=== PATIENT | male | born 1950 | race Hispanic/Latino ===

== ENCOUNTER 2017-03-30 13:56 | Emergency (ER) | payer OTHER ==
[2017-03-30] MEDS ORDERED: NA BORATE/BORIC AC/H2O/NACL 120 ML OPHTH IRRIG SOLN ONE (14:19)
[2017-03-30] MEDS ORDERED: TETRACAINE HCL 0.5% 4 ML OPHTH SOLN ONE (14:19)
[2017-03-30] MEDS ORDERED: FLUORESCEIN SODIUM 0.6 MG STRIP ONE (14:19)
== END 2017-03-30 15:16 | disposition home or self-care (01) ==
LOC: EDH 13:56
DX: S05.02XA Injury of conjunctiva and corneal abrasion without foreign body, left eye, initial encounter (principal); I10 Essential (primary) hypertension; E78.5 Hyperlipidemia, unspecified; X58.XXXA Exposure to other specified factors, initial encounter; Y93.89 Activity, other specified; Y92.89 Other specified places as the place of occurrence of the external cause; Y99.8 Other external cause status

== ENCOUNTER 2020-06-02 12:11 | Emergency (ER) | payer MEDICARE, OTHER ==
[2020-06-02] MEDS ORDERED: MORPHINE 4 MG SYG (4MG/1ML) ONE (13:03)
[2020-06-02] MEDS ORDERED: ONDANSETRON HCL 4 MG/2 ML VIAL ONE (13:03)
[2020-06-02 13:04] LABS: BASOPHILS % (AUTO) 0.6 % (0.0-5.0); EOSINOPHILS % (AUTO) 1.2 % (0.0-8.0); HEMATOCRIT 49.6 % (42-54); LYMPHOCYTES % (AUTO) 27.8 % (21.0-51.0); MEAN CORPUSCULAR HGB CONC 34.1 g/dL (32.0-36.0); MEAN CORPUSCULAR VOLUME 88.1 fL (79-99); MONOCYTES % (AUTO) 8.6 % (3.0-13.0); NEUTROPHILS % (AUTO) 61.5 % (40.0-77.0); PLATELET COUNT (AUTO) 201 K/uL (130-400); RED BLOOD CELL COUNT(AUTO) 5.63 MIL/uL (4.50-6.20); RED CELL DISTRIBUTION WIDTH 12.5 % (11.0-15.5); WHITE BLOOD COUNT (AUTO) 6.6 K/uL (4.8-10.8)
[2020-06-02 13:08] LABS: APPEARANCE,URINE Clear (CLEAR); BILIRUBIN,URINE Negative (NEGATIVE); COLOR,URINE Yellow (YELLOW); GLUCOSE, URINE (UA) Negative (NEGATIVE); KETONES,URINE Trace mg/dL (NEGATIVE); LEUKOCYTE ESTERASE ,URINE Trace (NEGATIVE); NITRATE,URINE Negative (NEGATIVE); OCCULT BLOOD,URINE Negative (NEGATIVE); PH,URINE 5.5 (5.0-8.0); PROTEIN,URINE Trace mg/dL (NEGATIVE)
[2020-06-02 13:13] LABS: BACTERIA,URINE Rare /HPF (None Seen); MUCUS,URINE Few LPF (None Seen); RBC,URINE 0-1 /HPF (0-1); SQUAMOUS EPITHELIAL CELL,UR Rare /HPF (0-2); WBC,URINE 0-1 /HPF (0-1)
[2020-06-02 13:27] LABS: INR 1.04 (0.85-1.15); PARTIAL THROMBOPLASTIN TIME 25.6 SEC (26.3-35.5); PROTHROMBIN TIME 10.8 SEC (9.6-11.6)
[2020-06-02 13:41] LABS: ALBUMIN 3.7 g/dL (3.5-5.0); BILIRUBIN,TOTAL 0.8 mg/dL (0.2-1.0); CREATININE 1.2 mg/dL (0.5-1.5); POTASSIUM 3.5 mmol/L (3.5-5.1); TOTAL PROTEIN, SERUM 7.5 g/dL (6.0-8.3)
[2020-06-02] MEDS ORDERED: IOHEXOL 350 MG/ML 100ML INFUS..BTL IV ONE (14:16)
== END 2020-06-02 15:57 | disposition home or self-care (01) ==
LOC: EDH 12:11
DX: K59.00 Constipation, unspecified (principal); I10 Essential (primary) hypertension; E78.5 Hyperlipidemia, unspecified; Z72.0 Tobacco use
CPT/HCPCS: 36415; 74177; 80053; 81001; 82550; 83605; 83690; 84484; 85025; 85610; 85730; 87040 ×2; 93005; 96361; 96374; 96375; 99285; J2270; J2405; Q9967

== ENCOUNTER 2021-09-05 10:37 | Emergency (ER) | payer MEDICARE, OTHER ==
[~2021-09-05] VITALS: Ht 177.8 cm; Wt 96.2 kg
[2021-09-05 11:25] LABS: CREATININE 1.2 mg/dL (0.5-1.5); POTASSIUM 3.8 mmol/L (3.5-5.1)
[2021-09-05 11:27] LABS: APPEARANCE,URINE CLEAR (CLEAR); BILIRUBIN,URINE NEGATIVE (NEGATIVE); COLOR,URINE YELLOW (YELLOW); GLUCOSE, URINE (UA) NEGATIVE (NEGATIVE); KETONES,URINE 5 mg/dL (NEGATIVE); LEUKOCYTE ESTERASE ,URINE NEGATIVE (NEGATIVE); NITRATE,URINE NEGATIVE (NEGATIVE); OCCULT BLOOD,URINE NEGATIVE (NEGATIVE); PH,URINE 5.5 (5.0-8.0); PROTEIN,URINE NEGATIVE (NEGATIVE); UROBILINOGEN,URINE 0.2 mg/dL (0.2-1.0)
[2021-09-05 11:30] LABS: ALBUMIN 3.2 g/dL (3.5-5.0)
[2021-09-05 11:37] LABS: BASOPHILS % (AUTO) 0.3 % (0.0-5.0); EOSINOPHILS % (AUTO) 2.1 % (0.0-8.0); HEMATOCRIT 46.8 % (42-54); LYMPHOCYTES % (AUTO) 26.4 % (21.0-51.0); MEAN CORPUSCULAR HEMOGLOBIN 30.4 pg (27.0-33.0); MEAN CORPUSCULAR HGB CONC 33.3 g/dL (32.0-36.0); MEAN CORPUSCULAR VOLUME 91.1 fL (79-99); MONOCYTES % (AUTO) 9.2 % (3.0-13.0); NEUTROPHILS % (AUTO) 61.7 % (40.0-77.0); PLATELET COUNT (AUTO) 211 K/uL (130-400); RED BLOOD CELL COUNT(AUTO) 5.14 MIL/uL (4.50-6.20); RED CELL DISTRIBUTION WIDTH 12.7 % (11.0-15.5); WHITE BLOOD COUNT (AUTO) 6.7 K/uL (4.8-10.8)
[2021-09-05 11:44] VITALS: BP 127/69
[2021-09-05] MEDS: METRONIDAZOLE 500 MG TABLET PO SCH (13:05)
[2021-09-05] MEDS: 0.9%NACL 1000ML 1,000 ML IV SCH (13:05)
[2021-09-05] MEDS: LEVOFLOXACIN 500 MG TABLET PO SCH (13:05)
[2021-09-05] MEDS: ONDANSETRON 4MG INJ IVP ONE (13:06)
[2021-09-05] MEDS: MORPHINE 2 MG SYG IVP ONE (13:06)
[2021-09-05] MEDS ORDERED: ONDA4TAB10 PO (13:48)
[2021-09-05] MEDS ORDERED: DICY20TA2 PO (13:48)
== END 2021-09-05 14:56 | disposition home or self-care (01) ==
LOC: EDH 10:37
DX: K57.10 Diverticulosis of small intestine without perforation or abscess without bleeding (principal); K42.9 Umbilical hernia without obstruction or gangrene; I10 Essential (primary) hypertension; E86.0 Dehydration
CPT/HCPCS: 99285; 84484; 80053; 83690; 85025; 81003; 36415; 71045; 74176; 96374; 96361; 96375; 93005; J7030; J2405

== ENCOUNTER 2021-10-07 18:40 | Emergency (ER) | payer OTHER ==
[~2021-10-07] VITALS: Ht 177.8 cm; Wt 90.7 kg
[~2021-10-07 18:40] MED LIST: DICY20TA2 PO; ONDA4TAB10 PO
[2021-10-07] MEDS ORDERED: LIDOCAINE HCL-MPF 2% 5ML VIAL ONE (20:14)
[2021-10-07] MEDS ORDERED: TETANUS/DIPHTHERIA TOXOID [ADULT] 0.5 ML VIAL IM ONE (20:14)
[2021-10-07] MEDS ORDERED: BACI30OI6 TP (20:45)
[2021-10-07] MEDS ORDERED: AMOX1TAB16 PO (20:45)
[2021-10-07 21:17] VITALS: BP 148/71
== END 2021-10-07 21:18 | disposition home or self-care (01) ==
LOC: EDH 18:40
DX: S61.412A Laceration without foreign body of left hand, initial encounter (principal); E78.00 Pure hypercholesterolemia, unspecified; I10 Essential (primary) hypertension; Z79.899 Other long term (current) drug therapy; W26.8XXA Contact with other sharp object(s), not elsewhere classified, initial encounter; Y93.89 Activity, other specified; Y92.89 Other specified places as the place of occurrence of the external cause; Y99.8 Other external cause status
CPT/HCPCS: 99283; 90714; 73120; 90471; 12002; J3490

== ENCOUNTER 2022-02-20 11:22 | Emergency (ER) | payer OTHER ==
[~2022-02-20] VITALS: Ht 177.8 cm; Wt 97.5 kg
[~2022-02-20 11:22] MED LIST changes: +AMOX1TAB16 PO; +BACI30OI6 TP
[2022-02-20] MEDS ORDERED: GUAI120015 PO (16:10)
[2022-02-20] MEDS ORDERED: D-ME118S47 PO (16:10)
[2022-02-20 16:21] VITALS: BP 152/86
== END 2022-02-20 16:23 | disposition left against medical advice (07) ==
LOC: EDH 11:22
DX: U07.1 COVID-19 (principal); E78.00 Pure hypercholesterolemia, unspecified; I10 Essential (primary) hypertension; Z85.46 Personal history of malignant neoplasm of prostate; Z79.899 Other long term (current) drug therapy
CPT/HCPCS: 99284; 87804 ×2; 87635; 71045; C9803

== ENCOUNTER → 2022-09-18 | Outpatient (CLI) | payer OTHER ==
[~2022-09-18] MED LIST changes: +D-ME118S47 PO; +GUAI120015 PO; +REGADENOSON 0.4 MG/5 ML PF SYG IVP ONE
== END | disposition home or self-care (01) ==
LOC: SHCH 09-04 09:15
PROVIDERS: ATTEND Internal Medicine Cardiovascular Disease
DX: I20.0 Unstable angina (principal); R94.39 Abnormal result of other cardiovascular function study; I25.9 Chronic ischemic heart disease, unspecified
CPT/HCPCS: 78452; 96374; 93017; J2785; A9500 ×2

== ENCOUNTER 2023-11-28 08:16 | Emergency (ER) | payer OTHER ==
[~2023-11-28] VITALS: Ht 177.8 cm; Wt 97.5 kg
[~2023-11-28 08:16] MED LIST changes: +BROM118S48 PO; -D-ME118S47 PO; +ONDA-243 PO; -ONDA4TAB10 PO; -REGADENOSON 0.4 MG/5 ML PF SYG IVP ONE
[2023-11-28] MEDS: ondanSETRON 4MG INJ IVP ONE (08:39)
[2023-11-28] MEDS: FAMOTIDINE 20MG VIAL IV ONE (08:40)
[2023-11-28] MEDS: morPHINE 2 MG SYG IVP ONE (08:40)
[2023-11-28 08:42] LABS: BASOPHILS # (AUTO) 0.03 K/uL (0.00-0.20); BASOPHILS % (AUTO) 0.5 % (0.0-5.0); EOSINOPHILS # (AUTO) 0.18 K/uL (0.00-0.70); HEMATOCRIT 48.2 % (42-54); IMMATURE GRANULOCYTE ABSOLUTE 0.02 K/uL (0-1); LYMPHOCYTES # (AUTO) 1.9 K/uL (1.0-4.8); MEAN CORPUSCULAR HEMOGLOBIN 30.5 pg (27.0-33.0); MEAN CORPUSCULAR HGB CONC 33.4 g/dL (32.0-36.0); MEAN CORPUSCULAR VOLUME 91.3 fL (79-99); MONOCYTES # (AUTO) 0.6 K/uL (0.1-1.0); MONOCYTES % (AUTO) 10.8 % (3.0-13.0); NEUTROPHILS # (AUTO) 3.2 K/uL (1.8-7.7); NEUTROPHILS % (AUTO) 53.4 % (40.0-77.0); PLATELET COUNT (AUTO) 168 K/uL (130-400); RED BLOOD CELL COUNT(AUTO) 5.28 MIL/uL (4.50-6.20); RED CELL DISTRIBUTION WIDTH 12.7 % (11.0-15.5); WHITE BLOOD COUNT (AUTO) 5.9 K/uL (4.8-10.8)
[2023-11-28 08:58] LABS: PROTHROMBIN TIME 10.8 SEC (9.6-11.6)
[2023-11-28 08:59] LABS: PARTIAL THROMBOPLASTIN TIME 28.6 SEC (26.3-35.5)
[2023-11-28 09:12] LABS: CREATININE 1.1 mg/dL (0.5-1.3); POTASSIUM 3.7 mmol/L (3.5-5.1)
[2023-11-28 09:15] LABS: APPEARANCE,URINE CLEAR (CLEAR); BILIRUBIN,URINE NEGATIVE (NEGATIVE); COLOR,URINE LIGHT-YELLOW (YELLOW); GLUCOSE, URINE (UA) NEGATIVE (NEGATIVE); KETONES,URINE NEGATIVE (NEGATIVE); LEUKOCYTE ESTERASE ,URINE NEGATIVE Leu/uL (NEGATIVE); MUCUS,URINE RARE LPF (None Seen); NITRATE,URINE NEGATIVE (NEGATIVE); OCCULT BLOOD,URINE NEGATIVE (NEGATIVE); PROTEIN,URINE NEGATIVE (NEGATIVE); RBC,URINE 0-1 /HPF (0-1); UROBILINOGEN,URINE 0.2 mg/dL (0.2-1.0)
[2023-11-28 09:17] LABS: ALBUMIN 3.2 g/dL (3.5-5.0); BILIRUBIN,DIRECT 0.1 mg/dL (0.0-0.3); BILIRUBIN,TOTAL 0.5 mg/dL (0.2-1.0)
[2023-11-28] MEDS ORDERED: METR-172 PO (10:18)
[2023-11-28] MEDS: cefTRIAXone 1G VIAL IVPB ONE (10:23)
[2023-11-28 10:29] VITALS: BP 168/90; PULSE 51; RESP 18; TEMP 98.4; O2SAT 97
== END 2023-11-28 10:36 | disposition home or self-care (01) ==
LOC: EDH 08:16
DX: K52.9 Noninfective gastroenteritis and colitis, unspecified (principal); E78.00 Pure hypercholesterolemia, unspecified; I10 Essential (primary) hypertension; Z90.79 Acquired absence of other genital organ(s)
CPT/HCPCS: 99284; 96374; 96375; 80076; 84484; 80048; 83690; 85025; 85610; 85730; 83605; 81001; 36415; 93005; 84145; J3490; J2270; J0696; J2405

== ENCOUNTER 2024-01-25 07:26 | Emergency (ER) | payer OTHER ==
[~2024-01-25] VITALS: Ht 177.8 cm; Wt 95.3 kg
[~2024-01-25 07:26] MED LIST changes: +METR-172 PO
[2024-01-25] MEDS: dexaMETHasone SOD PHOSPHATE 4 MG/ML 1ML VIAL IM ONE (07:54)
--- NOTE | 2024-01-25 08:08 | ERN ---
ED Note History of Present Illness Stated Complaint: COUGH X 3 WEEKS Chief Complaint: Cough Time Seen by MD: 07:28 Dictation: This is a 73-year-old male with past medical history of hypertension, hypercholesterolemia, prostate problem came to the ED with a chief complaint of cough since 4 weeks. Patient says that cough is mostly presented during the evening times become severe, cough is associated with greenish sputum. He also explained that the cough is so severe that it is causing abdominal pain and pain in the chest. Patient does not have any history of asthma, COPD, he informed that he used to take Robitussin for the sinuses. Patient also informed about acid reflux few times associated more with carbonated drinks and beer. Patient denies fevers, chills, nausea, trouble breathing, chest pain. Allergies: Coded Allergies: No Known Drug Allergies (Unverified Allergy, Unknown, 06/02/20) Home Meds Active Scripts Metronidazole (Metronidazole) 500 Mg Tablet, 500 MG PO BID for 7 Days, #14 TAB Prov:KATELIN RIOS MD 11/28/23 Guaifenesin (Mucinex) 1,200 Mg Tbmp.12hr, 1200 MG PO BID for URI for 10 Days, #20 TAB Prov:JOSE RAFAEL MONTERO 02/20/22 D-Methorphan Hb/P-Epd HCl/Bpm (Bromfed Dm Cough Syrup) 118 Ml Syrup, 5 ML PO QID for COUGH for 10 Days, #30 ML Prov:JOSE RAFAEL MONTERO 02/20/22 Amoxicillin/Potassium Clav (Amox Tr-K Clv 875-125 mg Tab) 1 Each Tablet, 1 EACH PO BID, #14 TAB Prov:NELI FAIRBANKS 10/07/21 Bacitracin (Bacitracin) 28.4 Gm Oint...g., 28.4 GM TP TID, #1 TUBE Prov:NELI FAIRBANKS 10/07/21 Ondansetron (Ondansetron Odt) 4 Mg Tab.rapdis, 4 MG PO TID, #21 TAB Prov:TRE FLANAGAN 09/05/21 Dicyclomine HCl (Bentyl) 20 Mg Tab, 20 MG PO QID, #28 TAB Prov:TRE FLANAGAN 09/05/21 Past Medical History Past Medical History: High Cholesterol, Hypertension, Prostatitis Additional Past Medical Hx: BPH Surgical History: Other Surgical History Other: TURP Family History: Negative Social History: Negative Review of System Dictation Constitutional-no chills, weight loss/gain, fever Eyes-no injury, pain, redness and discharge ENT-no injury, pain, swelling Cardiovascular no chest pain, palpitations, edema Respiratory no shortness of breath , wheezing. Patient has cough since 4 weeks Abdomen/GI-no abdominal pain, diarrhea, constipation, vomiting, nausea. Acid reflux present Back no injury and pain Genitourinary no injury, bleeding and discharge Musculoskeletal/extremities no injury, deformity Skin no rash, discoloration Neuro-no headache, weakness, numbness, tingling, seizures, tremors Psych-no suicidal ideation, homicidal ideation, hallucinations, depression, anxiety, memory loss Initial Vital Sign VS Vital Signs Date Time Temp Pulse Resp B/P (MAP) Pulse Ox O2 Delivery O2 Flow Rate FiO2 01/25/24 07:27 98.1 70 16 146/84 97 Room Air 0 01/25/24 08:07 21 Physical Exam Dictation General-patient is awake alert and oriented Head/neck-normocephalic, atraumatic Eyes-PERRL, EOMI, vision at baseline Neck-trachea midline, supple, no nuchal rigidity Cardiovascular-RRR, normal S1/S2, no MRG is, no JVD Respiratory-no distress, wheezing, rales, rhonchi Abdomen-no tenderness, guarding, soft, nondistended Skin warm, dry, normal turgor, no rash Musculoskeletal/extremities pulses equal, no cyanosis Neuro-COA X 4, GCS 15, strength 5/5, CN 2-12 intact Psych-normal behavior, mood and affect normal Results (Laboratory/Radiology) Laboratory/Radiology Laboratory Tests Test 01/25/24 07:47 01/25/24 08:00 01/25/24 08:35 Urine Color YELLOW (YELLOW) Urine Appearance CLEAR (CLEAR) Urine pH 6.0 (5.0-8.0) Urine Specific [place] 1.030 (1.001-1.031) Urine Protein 20 mg/dL (NEGATIVE) H Urine Glucose (UA) NEGATIVE mg/dL (NEGATIVE) Urine Ketones NEGATIVE mg/dL (NEGATIVE) Urine Occult Blood NEGATIVE (NEGATIVE) Urine Nitrate NEGATIVE (NEGATIVE) Urine Bilirubin NEGATIVE mg/dL (NEGATIVE) Urine Urobilinogen 0.2 mg/dL (0.2-1.0) Urine Leukocyte Esterase 75 Sally/uL (NEGATIVE) H Urine RBC 2-5 /HPF (0-1) H Urine WBC 11-25 /HPF (0-1) H Urine Squamous Epithelial Cells RARE /HPF (0-2) Urine Bacteria None /HPF (None Seen) Influenza Type A Antigen Negative For Type A Influenza Type B Antigen Negative For Type B SARS-CoV-2 Antigen (Rapid) PRESUMPTIVE NEGATIVE White Blood Count 8.5 K/uL (4.8-10.8) Red Blood Count 4.56 MIL/uL (4.50-6.20) Hemoglobin 13.7 g/dL (14.0-18.0) L Hematocrit 40.9 % (42-54) L Mean Corpuscular Volume 89.7 fL (79-99) Mean Corpuscular Hemoglobin 30.0 pg (27.0-33.0) Mean Corpuscular Hemoglobin Concent 33.5 g/dL (32.0-36.0) Red Cell Distribution Width 12.9 % (11.0-15.5) Platelet Count 197 K/uL (130-400) Mean Platelet Volume 9.7 fL (7.5-10.5) Immature Granulocyte % (Auto) 0.2 % (0-1) Neutrophils (%) (Auto) 69.4 % (40.0-77.0) Lymphocytes (%) (Auto) 15.3 % (21.0-51.0) L Monocytes (%) (Auto) 11.9 % (3.0-13.0) Eosinophils (%) (Auto) 2.8 % (0.0-8.0) Basophils (%) (Auto) 0.4 % (0.0-5.0) Neutrophils # (Auto) 5.9 K/uL (1.8-7.7) Lymphocytes # (Auto) 1.3 K/uL (1.0-4.8) Monocytes # (Auto) 1.0 K/uL (0.1-1.0) Eosinophils # (Auto) 0.24 K/uL (0.00-0.70) Basophils # (Auto) 0.03 K/uL (0.00-0.20) Absolute Immature Granulocyte (auto 0.02 K/uL (0-1) Nucleated Red Blood Cells 0.0 % (0.0-0.19) Sodium Level 142 mmol/L (136-145) Potassium Level 3.5 mmol/L (3.5-5.1) Chloride Level 107 mmol/L (101-111) Carbon Dioxide Level 30 mmol/L (21-32) Blood Urea Nitrogen 19 mg/dL (7-18) H Creatinine 1.0 mg/dL (0.5-1.3) Glomerular Filtration Rate Calc 79 mL/min (>90) Random Glucose 96 mg/dL (70-105) Total Calcium 8.3 mg/dL (8.5-10.1) L Labs Reviewed?: Yes X-RAY Comment: [place] [id number] [id number] IMAGING REPORT Signed PATIENT: REINA FIGUEROA V MR#: [id number] : 1950 SEX: M AGE: 73 LOCATION: [facility] ORDER 9 STATUS: REG ER REPORT#: [id number] SERVICE REASON: cough ORDERING PHYSICIAN: STIVEN SANTANA MD PROCEDURE: CXR1VW - CHEST 1VW CHEST 1VW HISTORY: Cough COMPARISON: 02/20/2022 FINDINGS: A frontal projection of the chest was obtained. No acute pulmonary infiltrates is seen. The heart is borderline enlarged. Prominent interstitial markings are seen. Degenerative changes are seen. IMPRESSION: 1. No acute pulmonary infiltrate is seen. DICTATED BY: CHANEL PROCTOR MD DATE: 01/25/24840 ELECTRONICALLY SIGNED BY: CHANEL PROCTOR MD DATE: 01/25/2443 ED Course ED Course Orders Procedure Category Date Status Time Covid19 (Sars Antigen LAB 01/25/24 Complete Rapid) 07:34 Influenza Type A & B, LAB 01/25/24 Complete Rapid 07:34 Cbc With Differential LAB 01/25/24 Complete 07:38 Basic Metabolic Panel LAB 01/25/24 Complete 07:38 Chest 1vw RAD 01/25/24 Resulted 07:38 Dexamethasone 4mg/Ml PHA 01/25/24 Complete 1ml Vial (Dexametha 08:00 Urinalysis Profile LAB 01/25/24 Complete 07:46 Culture Urine ULISES 01/25/24 In Process 08:13 Pantoprazole 40mg Tab PHA 01/25/24 Complete (Protonix 40mg Tab 08:30 Current Medications Medications (Trade) Dose Ordered Sig/Aram Route PRN Reason Start Time Stop Time Status Last Admin Dose Admin Dexamethasone Sodium Phosphate (dexaMETHasone 4MG/ML 1ML VIAL) 4 mg ONCE ONCE IM 01/25/24 08:00 01/25/24 08:01 DC 01/25/24 07:54 Pantoprazole Sodium (PROTonix 40MG TAB) 40 mg ONCE ONCE PO 01/25/24 08:30 01/25/24 08:31 DC 01/25/24 08:27 Vital Signs Date Time Temp Pulse Resp B/P (MAP) Pulse Ox O2 Delivery O2 Flow Rate FiO2 01/25/24 08:07 98.2 67 16 152/84 100 Room Air* 0 21 01/25/24 07:27 98.1 70 16 146/84 97 Room Air 0 Medical Decision Making MDM INITIAL IMPRESSION Initial history and physical concerning for GERD, Contributing medical problems: I have reviewed the triage nursing notes and vital signs. Initial plan: Laboratory evaluation and x-ray DATA REVIEW I have reviewed additional NN, repeat VS, and monitoring where indicated. Heart rate, blood pressure, and O2 saturation are acceptable. ED COURSE Interventions: Reassessment: Not indicated DISPOSITION Final diagnostic impression: I discussed my findings, clinical impression and treatment recommendations with the patient. My final plan for disposition was made based upon -mild risk of complications and potential morbidity of the patient's condition. -Discussion with the patient regarding management options. Patient will be discharged with medication DX & DISP Disposition: Discharge Departure Impression: Primary Impression: GERD (gastroesophageal reflux disease) Additional Impression: Sinusitis Condition: Stable Scripts Pantoprazole Sodium (Protonix) 40 Mg Ectab 1 TAB PO DAILY for 30 Days, #30 TAB 0 Refills Prov: STIVEN SANTANA MD 01/25/24 Loratadine (Loratadine) 10 Mg Tablet 1 TAB PO DAILY for allergy symptoms for 30 Days, #30 TAB 0 Refills Prov: STIVEN SANTANA MD 01/25/24 Fluticasone Propionate (Flonase Nasal [place]) 50 Mcg/Actuation [place] 2 SPRAY NS DAILY, #16 GM 0 Refills Prov: STIVEN SANTANA MD 01/25/24 Additional Instructions: FOLLOW-UP WITH PRIMARY CARE PROVIDER IN 1 TO 2 DAYS. TAKE MEDICATIONS DIRECTED HERE IN THE EMERGENCY ROOM. OKAY TO CONTINUE HOME MEDICATIONS UNLESS OTHERWISE DISCUSSED DURING YOUR VISIT IN THE EMERGENCY ROOM TODAY. RETURN TO YOUR NEAREST EMERGENCY ROOM IF SYMPTOMS WORSEN OR IF THERE IS NO IMPROVEMENT. CALL 911 IF YOU NEED IMMEDIATE ASSISTANCE. TAKE TYLENOL [id number] NEEDED AND IF NO CONTRAINDICATIONS ARE PRESENT. INCREASE ORAL HYDRATION. A WOUND CULTURE OR URINE CULTURE WAS ORDERED HERE IN THE EMERGENCY ROOM DEPARTMENT PLEASE FOLLOW-UP WITH PRIMARY CARE PROVIDER AND ADVISE THEM TO GET REPEAT PORTS FROM OUR FACILITY. IF YOU HAD ANY NE WRAP/SPLINTS THAT WERE APPLIED HERE, PLEASE DO NOT REMOVE THEM UNTIL YOU SEE YOUR PRIMARY CARE OR SPECIALTY. Referrals: Referrals: JORDEN VARGAS (PCP) Time of Disposition: 08:58 I have reviewed I have reviewed the case I have examined patient SILVAMELISSA MD Jan 25, 2024 08:08 STIVEN SANTANA MD Jan 25, 2024 08:50
[2024-01-25 08:10] LABS: APPEARANCE,URINE CLEAR (CLEAR); BILIRUBIN,URINE NEGATIVE (NEGATIVE); COLOR,URINE YELLOW (YELLOW); GLUCOSE, URINE (UA) NEGATIVE (NEGATIVE); KETONES,URINE NEGATIVE (NEGATIVE); LEUKOCYTE ESTERASE ,URINE 75 Leu/uL (NEGATIVE); NITRATE,URINE NEGATIVE (NEGATIVE); OCCULT BLOOD,URINE NEGATIVE (NEGATIVE); PROTEIN,URINE 20 mg/dL (NEGATIVE); UROBILINOGEN,URINE 0.2 mg/dL (0.2-1.0)
[2024-01-25 08:13] LABS: ADD UA MICROSCOPIC YES
[2024-01-25 08:14] LABS: MUCUS,URINE RARE LPF (None Seen); SQUAMOUS EPITHELIAL CELL,UR RARE /HPF (0-2)
[2024-01-25 08:22] LABS: COVID19 (SARS ANTIGEN RAPID) PRESUMPTIVE NEGATIVE (NEGATIVE); INFLUENZA TYPE A Negative For Type A (NEGATIVE); INFLUENZA TYPE B Negative For Type B (NEGATIVE)
[2024-01-25] MEDS: PANTOPrazole 40 MG TAB DR PO ONE (08:27)
[2024-01-25 08:40] LABS: BASOPHILS # (AUTO) 0.03 K/uL (0.00-0.20); BASOPHILS % (AUTO) 0.4 % (0.0-5.0); EOSINOPHILS # (AUTO) 0.24 K/uL (0.00-0.70); EOSINOPHILS % (AUTO) 2.8 % (0.0-8.0); HEMATOCRIT 40.9 % (42-54); IMMATURE GRANULOCYTE ABSOLUTE 0.02 K/uL (0-1); LYMPHOCYTES # (AUTO) 1.3 K/uL (1.0-4.8); LYMPHOCYTES % (AUTO) 15.3 % (21.0-51.0); MEAN CORPUSCULAR HGB CONC 33.5 g/dL (32.0-36.0); MEAN CORPUSCULAR VOLUME 89.7 fL (79-99); MONOCYTES % (AUTO) 11.9 % (3.0-13.0); NEUTROPHILS # (AUTO) 5.9 K/uL (1.8-7.7); NEUTROPHILS % (AUTO) 69.4 % (40.0-77.0); PLATELET COUNT (AUTO) 197 K/uL (130-400); RED BLOOD CELL COUNT(AUTO) 4.56 MIL/uL (4.50-6.20); RED CELL DISTRIBUTION WIDTH 12.9 % (11.0-15.5); WHITE BLOOD COUNT (AUTO) 8.5 K/uL (4.8-10.8)
--- NOTE | 2024-01-25 08:43 | HMCIMG ---
CHEST 1VW HISTORY: Cough COMPARISON: 02/20/2022 FINDINGS: A frontal projection of the chest was obtained. No acute pulmonary infiltrates is seen. The heart is borderline enlarged. Prominent interstitial markings are seen. Degenerative changes are seen. IMPRESSION: 1. No acute pulmonary infiltrate is seen.
[2024-01-25 08:51] LABS: POTASSIUM 3.5 mmol/L (3.5-5.1)
[2024-01-25] MEDS ORDERED: LORA10TA7 PO (08:59)
[2024-01-25] MEDS ORDERED: PANT40TA55 PO (08:59)
[2024-01-25] MEDS ORDERED: FLUT16H NS (08:59)
[2024-01-25 09:00] VITALS: BP 148/80; PULSE 70; RESP 16; TEMP 98.2; O2SAT 97
[2024-01-25] MEDS ORDERED: CEPH500B PO (09:04)
== END 2024-01-25 09:28 | disposition home or self-care (01) ==
LOC: EDH 07:26
DX: K21.9 Gastro-esophageal reflux disease without esophagitis (principal); J32.9 Chronic sinusitis, unspecified; E78.00 Pure hypercholesterolemia, unspecified; I10 Essential (primary) hypertension; Z90.79 Acquired absence of other genital organ(s); Z20.822 Contact with and (suspected) exposure to COVID-19
CPT/HCPCS: 99284; 71045; 87426; 80048; 85025; 87086; 87804 ×2; 81001; 36415; 96372; J1100

== ENCOUNTER 2024-10-02 08:14 | Day surgery (SDC) | payer OTHER ==
[2024-09-29 12:48] LABS: IMMATURE GRANULOCYTE ABSOLUTE 0.02 K/uL (0-1); NUCLEATED RED BLOOD CELLS 0.0 % (0.0-0.19); PLATELET COUNT (AUTO) 238 K/uL (130-400); RED BLOOD CELL COUNT(AUTO) 4.96 MIL/uL (4.50-6.20); RED CELL DISTRIBUTION WIDTH 12.3 % (11.0-15.5); WHITE BLOOD COUNT (AUTO) 6.1 K/uL (4.8-10.8)
[2024-09-29 12:53] VITALS: BP 139/74; PULSE 52; RESP 18; TEMP 98.1
[2024-09-29 12:58] LABS: INR 1.02 (0.85-1.15)
[2024-09-29 13:11] LABS: CREATININE 1.0 mg/dL (0.5-1.3); GLOMERULAR FILTR. RATE CALC 78.0 mL/min (>90); GLUCOSE,RANDOM 106.0 mg/dL (70-105); SODIUM SERUM 143.0 mmol/L (136-145); UREA NITROGEN, BLOOD 18.0 mg/dL (7-18)
--- NOTE | 2024-09-29 14:30 | HMCIMG ---
EXAM: CR Chest, 1 View. CLINICAL HISTORY: PREOP COMPARISON: None provided. FINDINGS: LUNGS: There is no mass, infiltrate, or acute pulmonary abnormality. PLEURAL SPACES: No evidence of pleural effusion or pneumothorax. MEDIASTINUM: Cardiac size and mediastinal contours within normal limits. BONES: No acute osseous abnormality. IMPRESSION: No acute cardiopulmonary pathology is evident. /[place]
--- NOTE | 2024-09-29 21:32 | EKG ---
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
[2024-10-02] VITALS (10 sets, daily range): BP systolic 107–148; BP diastolic 47–83; PULSE 54–79; RESP 12–22; TEMP 97.5–98.2
[~2024-10-02] VITALS: Ht 177.8 cm; Wt 95.9 kg
[~2024-10-02 08:14] MED LIST changes: +AMLO-258 PO; -AMOX1TAB16 PO; +ASPI-1197 PO; -BACI30OI6 TP; -BROM118S48 PO; -DICY20TA2 PO; -GUAI120015 PO; +LOSA100T59 PO; -METR-172 PO; -ONDA-243 PO; +PRAV40TA62 PO
[2024-10-02] MEDS: 0.9%NACL 1000ML 1,000 ML IV SCH (08:55)
[2024-10-02] MEDS ORDERED: LIDOCAINE HCL 400MG/20ML VIAL ONE (11:16)
[2024-10-02] MEDS ORDERED: HEParin-NS 1,000 UNIT/500 ML 1,000 ML IV ONE (11:16)
[2024-10-02] MEDS ORDERED: NITROGLYCERIN 50MG VIAL ONE (11:17)
[2024-10-02] MEDS ORDERED: IOHEXOL 350 MG/ML 100ML INFUS..BTL IV ONE (11:21)
[2024-10-02] MEDS ORDERED: MIDAZOLAM HCL 1 MG/ML 2ML VIAL ONE (11:34)
[2024-10-02] MEDS ORDERED: BIVALIRUDIN 250 MG/VIAL IV ONE (11:40)
--- NOTE | 2024-10-02 12:14 | PRN ---
Left Heart Cath-Tiburcio PROCEDURE: 1. Right common femoral arterial sheath placement. 2. Selective coronary angiogram. 3. Left heart catheterization. 4. Left ventriculogram. INDICATIONS: Abnormal stress test for moderate anterior wall ischemia DESCRIPTION OF PROCEDURE: The patient was brought to the catheterization suite and prepped and draped in sterile fashion. An IV was started, if not already in place and both groins were exposed for arterial access. 1% lidocaine was used for local anesthesia and then a micropuncture kit was used to gain access and once free-flowing blood was seen, modified Seldinger technique was utilized to place a 6 Argentine sheath into the right common femoral artery. Next, preformed JL4 and JR4 Catheters were then used to selectively engage the [place] coronary vessels and multiple hand contrast injections were performed in different views to define the coronary anatomy. Next, a six [place] angled pigtail catheter was used to cross the aortic valve. Pressure measurements were obtained in the left ventriculogram was in the 30 RAJPUT position. Next, pullback method was performed. At the end of the case, sheath was pulled using a Perclose closure system for closure of arteriotomy site. No complications occurred. FINDINGS: The left main artery bifurcates into the LAD and left circumflex in his free of any significant disease. The left anterior descending artery after diagonal branch 1. Is a 30% concentric stenosis present. Diagonal branch system is free of any significant disease The left circumflex vessel and its obtuse marginal branch system are free of any significant stenosis. The right coronary artery is a large dominant system giving rise to the RPDA and RPL. No stenosis is noted in the body of the RCA or its daughter vessels. LVEDP was at 15 mm Hg Ejection fraction was estimated at 65% Resting wall motion appears to be normal and views obtained RECOMMENDATIONS: Nicotine cessation Continue with outpatient medications [place] cardiovascular exercise program JOYA MCLAUGHLIN MD Oct 02, 2024 12:14
[2024-10-02] MEDS ORDERED: DEXTROSE 50%-WATER 50 ML DISP.SYRIN IV PRN (12:30)
[2024-10-02] MEDS ORDERED: GLUCAGON 1MG KIT 1 MG ML IM PRN (12:30)
[2024-10-02] MEDS ORDERED: 0.9%NACL 1000ML 1,000 ML IV SCH (12:30)
[2024-10-02] MEDS ORDERED: NITROGLYCERIN 0.4 MG SL TAB SL PRN (12:30)
--- NOTE | 2024-10-02 13:55 | NUR ---
REPORT: HAND OFF COMMUNICATION GIVEN TO DOUGEI PIKE RN
--- NOTE | 2024-10-02 15:45 | NUR ---
BOTH PT AND GIVEN VERBAL AND WRITTEN DISCHARGE INSTRUCTIONS. IV REMOVED SITE ASYMPTOMATIC. PT TAKEN OUT VIA WHEELCHAIR DRIVING
== END 2024-10-02 15:40 | disposition home or self-care (01) ==
LOC: DAH 08:14
PROVIDERS: ATTEND Internal Medicine Cardiovascular Disease
DX: R94.39 Abnormal result of other cardiovascular function study (principal); I25.119 Atherosclerotic heart disease of native coronary artery with unspecified angina pectoris; R07.9 Chest pain, unspecified; R06.09 Other forms of dyspnea; I10 Essential (primary) hypertension; E78.5 Hyperlipidemia, unspecified; E66.9 Obesity, unspecified; Z68.32 Body mass index [BMI] 32.0-32.9, adult; Z79.82 Long term (current) use of aspirin; Z79.899 Other long term (current) drug therapy
CPT/HCPCS: 80048; 85025; 85610; 85730; 36415; 71045; 93005; 93458; 99156; C1894; C1760; J3010; J3490 ×2; J7030; J2250; J1644; Q9967; A4215; A4222; A4221; A4663; A4216; A4606; Q9965; A4223 ×3; 96360; 96361; 99157; J0583

== ENCOUNTER 2024-12-21 09:24 | Emergency (ER) | payer OTHER ==
[~2024-12-21] VITALS: Ht 177.8 cm; Wt 95.3 kg
--- NOTE | 2024-12-21 09:37 | ERN ---
General Chief Complaint: Headache Stated Complaint: DIZZINESS,HEADACHE,AND BODY SHAKING Time Seen by MD: 09:27 Source: patient History of Present Illness Initial Comments Patient is a 74-year-old male coming in complaining of achiness and frontal headache discomfort. Per patient this has been ongoing for a couple of days. He states he feels shaky at times was evaluated by his PCP started on medication for "some infection". Allergies: Coded Allergies: No Known Drug Allergies (Unverified Allergy, Unknown, 06/02/20) Home Meds Reported Medications Aspirin (Aspirin) 81 Mg Tab.chew, 81 MG PO DAILY, TAB.CHEW 09/29/24 Amlodipine Besylate (Amlodipine Besylate) 10 Mg Tablet, 10 MG PO DAILY for 30 Days, #30 TAB 0 Refills 09/29/24 Pravastatin Sodium (Pravastatin Sodium) 40 Mg Tablet, 40 MG PO DAILY, TAB 09/29/24 Losartan Potassium (Losartan Potassium) 100 Mg Tablet, 100 MG PO DAILY, TAB 09/29/24 Past Medical History Past Medical History: High Cholesterol, Hypertension, Prostatitis Medical History Other: BPH Past Surgical History: Other Surgical History Other: TURP Family History Family History: Negative Social History Social History: Negative ROS Dictation CONSTITUTIONAL: No chills, no fever, no weakness, no diaphoresis, no malaise. HEAD/FACE: No signs of trauma. EENT: No eye pain, no blurred vision, no tearing, no double vision, no ear pain, no ear discharge, no nose pain, no nasal congestion, no throat pain, no throat swelling, no mouth pain. RESPIRATORY: No cough, no orthopnea, no SOB, no stridor, no wheezing. CARDIOVASCULAR: No chest pain, no edema, no palpitations, no syncope. GASTROINTESTINAL/ABDOMINAL: No abdominal pain, no constipation, no diarrhea, no nausea, no vomiting. GENITOURINARY: No abnormal discharge, no dysuria, no frequent urination, no hematuria. No complaints of pain in the genitals. MUSCULOSKELETAL: No back pain, no gout, no joint pain, no joint swelling, no muscle pain, no muscle stiffness, no neck pain. INTEGUMENTARY: No change in color, no change in hair/nails, no dryness, no lesion, no lumps, no rash. NEUROLOGICAL/PSYCH: No anxiety, not depressed, no emotional problem, no headache, no numbness, no pre-existing deficit, no history of seizures, no tremors, no weakness. HEMATOLOGIC/LYMPHATIC: Not anemic, no history of blood clots, no apparent bleeding, no bruising, glands not swollen. All Systems Negative, Except as Noted. Physical Exam Physical Exam Dictation VITAL SIGNS: Reviewed. GENERAL APPEARANCE: Alert, oriented x3, no acute distress, obese. HEAD AND FACE: Non-traumatic. EYES: PERRL, pink conjunctivas, eyelid no trauma, anterior chamber clear. EARS: Pinnas intact and no signs of trauma or erythema. Ear canals clear and no discharge. TMs no erythema. NOSE: No discharge, no bleeding. OROPHARYNX: Mouth normal, teeth no caries, tongue pink. Pharynx clear, no jordyn thema. Tonsils no exudates, no abscesses noted. Mucous membrane moist. NECK: Supple, non-tender, no thyromegaly, no masses, no JVD, no bruits. BREAST: Deferred. CHEST: No tenderness, no crepitus, no paradoxical movement, no retractions. LUNGS: Clear, well-ventilated, symmetric, no rales, no wheezing, no rhonchi, no stridor, good breath sounds bilaterally. HEART: Regular rate, regular rhythm, no murmur, no gallops. VASCULAR: No peripheral edema. ABDOMEN: Soft, positive bowel sounds, nondistended, no guarding, nontender, no rebound, no masses no hepatomegaly, no splenomegaly, no Lipscomb's sign, no hernias. RECTAL: Deferred. GENITAL: Deferred. NEUROLOGICAL: Normal speech, gross motor function intact, gross sensory function intact. MUSCULOSKELETAL: Neck nontender, full range of motion, back nontender, full range of motion. EXTREMITIES: Nontender, full range of motion. SKIN: Color pink, dry, no turgor, no rash, no lacerations, no abrasions, no contusions. LYMPHATICS: Deferred. Results Laboratory and Microbiology Lab and Micro Result Laboratory Tests Test 12/21/24 09:40 12/21/24 09:42 Urine Color YELLOW (YELLOW) Urine Appearance CLEAR (CLEAR) Urine pH 6.5 (5.0-8.0) Urine Specific [place] 1.020 (1.001-1.031) Urine Protein NEGATIVE mg/dL (NEGATIVE) Urine Glucose (UA) NEGATIVE mg/dL (NEGATIVE) Urine Ketones NEGATIVE mg/dL (NEGATIVE) Urine Occult Blood NEGATIVE (NEGATIVE) Urine Nitrate NEGATIVE (NEGATIVE) Urine Bilirubin NEGATIVE mg/dL (NEGATIVE) Urine Urobilinogen 0.2 mg/dL (0.2-1.0) Urine Leukocyte Esterase NEGATIVE Sally/uL Influenza Type A Antigen Negative For Type A Influenza Type B Antigen Negative For Type B SARS-CoV-2, RNA, NAAT NEGATIVE SARS CoV-2 Group A Streptococcus Rapid negative (NEGATIVE) White Blood Count 8.4 K/uL (4.8-10.8) Red Blood Count 5.51 MIL/uL (4.50-6.20) Hemoglobin 16.4 g/dL (14.0-18.0) Hematocrit 49.6 % (42-54) Mean Corpuscular Volume 90.0 fL (79-99) Mean Corpuscular Hemoglobin 29.8 pg (27.0-33.0) Mean Corpuscular Hemoglobin Concent 33.1 g/dL (32.0-36.0) Red Cell Distribution Width 12.4 % (11.0-15.5) Platelet Count 269 K/uL (130-400) Mean Platelet Volume 9.8 fL (7.5-10.5) Immature Granulocyte % (Auto) 0.2 % (0-1) Neutrophils (%) (Auto) 69.4 % (40.0-77.0) Lymphocytes (%) (Auto) 22.0 % (21.0-51.0) Monocytes (%) (Auto) 6.7 % (3.0-13.0) Eosinophils (%) (Auto) 1.2 % (0.0-8.0) Basophils (%) (Auto) 0.5 % (0.0-5.0) Neutrophils # (Auto) 5.9 K/uL (1.8-7.7) Lymphocytes # (Auto) 1.9 K/uL (1.0-4.8) Monocytes # (Auto) 0.6 K/uL (0.1-1.0) Eosinophils # (Auto) 0.10 K/uL (0.00-0.70) Basophils # (Auto) 0.04 K/uL (0.00-0.20) Absolute Immature Granulocyte (auto 0.02 K/uL (0-1) Nucleated Red Blood Cells 0.0 % (0.0-0.19) Sodium Level 139 mmol/L (136-145) Potassium Level 3.6 mmol/L (3.5-5.1) Chloride Level 103 mmol/L (101-111) Carbon Dioxide Level 29 mmol/L (21-32) Blood Urea Nitrogen 19 mg/dL (7-18) H Creatinine 1.1 mg/dL (0.5-1.3) Glomerular Filtration Rate Calc 70 mL/min (>90) Random Glucose 101 mg/dL (70-105) Total Calcium 8.5 mg/dL (8.5-10.1) Magnesium Level 2.00 mg/dL (1.80-2.40) Total Creatine Kinase 37 U/L (21-232) # Troponin I High Sensitivity 16 ng/L (4-75) Labs Reviewed?: Yes EKG/XRAY/US/CT/MRI EKG Comment 12/21/2024 time 9:34 a.m. Ventricular rate [address] wave elevation or depression 2nd EKG 12/21/2024 time 11:04 a.m. Ventricular rate [address] wave elevation or depression CT Scan Comment CT head without contrast- chronic subdural with the epidural component. MDM MDM: Differential diagnosis: Epidural hematoma, subdural hematoma, atrial fibrillation Rationale: Tests considered and ordered secondary to shared decision making include: Previous outside records reviewed: Old ER visits. Risk of complication and/or morbidity or mortality of patient management: None Medications-Per medication reconciliation Need for hospitalization: Patient does meet criteria for hospitalization. Need for emergency major/minor surgery: No There are no social concerns with this patient. Prescription drug management Prescriptions will include symptomatic care Patient's prior external medical records from other ER visits were reviewed by me as indicated. Prior testing and results from previous visits were reviewed. Prior tests were taken into account with medical decision making and resource utilization, independent historian/historians were used to obtain complete medical history. I independently interpreted the test that were performed, results were reviewed by me and considered findings on radiology if ordered. Medical management and examination interpretation discussions were had by me with other qualified healthcare professionals as indicated for the patient's care. Patient will be transferred to [facility] under the care of doctor Ector he accepts patient at [facility]. Spoke ER MD Dr. Gates with the accepts patient. ED Course Orders Procedure Category Date Status Time Cbc With Differential LAB 12/21/24 Complete 09:30 Chest 1vw RAD 12/21/24 Taken 09:30 12 Lead Ekg Tracing- EKG 12/21/24 Complete Technical 09:30 0.9%Nacl 1000ml (Ns PHA 12/21/24 Complete 1000ml) 09:30 Magnesium LAB 12/21/24 Complete 09:30 Creatine Kinase, Total LAB 12/21/24 Complete 09:30 Troponin I High LAB 12/21/24 Complete Sensitivity 09:30 Urinalysis Profile LAB 12/21/24 Complete 09:30 Basic Metabolic Panel LAB 12/21/24 Complete 09:30 Covid Rna Naat LAB 12/21/24 Complete 09:30 Influenza Type A & B, LAB 12/21/24 Complete Rapid 09:30 Rapid (Group A Strep) LAB 12/21/24 Complete 09:30 Ct Head/Brain W/O CT 12/21/24 Taken Contrast 10:20 12 Lead Ekg Tracing- EKG 12/21/24 Complete Technical 11:12 Current Medications Medications (Trade) Dose Ordered Sig/Aram Route PRN Reason Start Time Stop Time Status Last Admin Dose Admin Sodium Chloride 1,000 ml @ 0 mls/hr ONCE ONCE IV 12/21/24 09:30 12/21/24 09:33 DC 12/21/24 10:00 Vital Signs Date Time Temp Pulse Resp B/P (MAP) Pulse Ox O2 Delivery O2 Flow Rate FiO2 12/21/24 12:21 98.1 89 21 163/87 97 Room Air* 0 21 12/21/24 11:51 98.1 88 20 151/97 98 Room Air* 0 21 12/21/24 10:04 98.1 60 17 148/88 97 Room Air* 0 21 12/21/24 09:25 97.0 73 20 153/90 98 Room Air 0 Critical Care Note Comments Critical Care Procedure Note Authorized and Performed by: me Total critical care time: Approximately 36 minutes Due to a high probability of clinically significant, life threatening deterioration, the patient required my highest level of preparedness to interv jojo emergently and I personally spent this critical care time directly and personally managing the patient. This critical care time included obtaining a history; examining the patient; pulse oximetry; ordering and review of studies; arranging urgent treatment with development of a management plan; evaluation of patient's response to treatment; frequent reassessment; and, discussions with other providers. This critical care time was performed to assess and manage the high probability of imminent, life-threatening deterioration that could result in multi-organ failure. It was exclusive of separately billable procedures and treating other patients and teaching time. Please see MDM section and the rest of the note for further information on patient assessment and treatment. DX & DISP Disposition: Transfer Departure Impression: Primary Impression: Epidural hematoma Additional Impressions: Subdural hematoma, Atrial fibrillation Condition: Stable Referrals: JORDEN VARGAS (PCP) STIVEN SANTANA MD Dec 21, 2024 09:37
[2024-12-21 09:47] LABS: IMMATURE GRANULOCYTE ABSOLUTE 0.02 K/uL (0-1); NUCLEATED RED BLOOD CELLS 0.0 % (0.0-0.19); PLATELET COUNT (AUTO) 269 K/uL (130-400); RED BLOOD CELL COUNT(AUTO) 5.51 MIL/uL (4.50-6.20); RED CELL DISTRIBUTION WIDTH 12.4 % (11.0-15.5); WHITE BLOOD COUNT (AUTO) 8.4 K/uL (4.8-10.8)
--- NOTE | 2024-12-21 09:48 | EKG ---
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
[2024-12-21 09:50] LABS: APPEARANCE,URINE CLEAR (CLEAR); GLUCOSE, URINE (UA) NEGATIVE (NEGATIVE); LEUKOCYTE ESTERASE ,URINE NEGATIVE Leu/uL (NEGATIVE); NITRATE,URINE NEGATIVE (NEGATIVE); OCCULT BLOOD,URINE NEGATIVE (NEGATIVE)
[2024-12-21] MEDS: 0.9%NACL 1000ML 1,000 ML IV ONE (10:00)
[2024-12-21 10:02] LABS: CREATININE 1.1 mg/dL (0.5-1.3); GLOMERULAR FILTR. RATE CALC 70.0 mL/min (>90); GLUCOSE,RANDOM 101.0 mg/dL (70-105); SODIUM SERUM 139.0 mmol/L (136-145); UREA NITROGEN, BLOOD 19.0 mg/dL (7-18)
[2024-12-21 10:05] LABS: ADD UA MICROSCOPIC NO; SARS-CoV-2, RNA, NAAT NEGATIVE SARS CoV-2 (NEGATIVE)
[2024-12-21 10:07] LABS: CREATINE KINASE, TOTAL 37.0 U/L (21-232)
[2024-12-21 10:12] LABS: INFLUENZA TYPE A Negative For Type A (NEGATIVE); INFLUENZA TYPE B Negative For Type B (NEGATIVE); RAPID GROUP A STREP negative (NEGATIVE)
--- NOTE | 2024-12-21 11:22 | EKG ---
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
[2024-12-21 12:21] VITALS: BP 163/87; PULSE 89; RESP 21; TEMP 98.1; O2SAT 97
--- NOTE | 2024-12-21 12:47 | NUR ---
1247 CALLED [facility] TO GIVE REPORT TO MARIAH LANG , PT STABLE NO DISTRESS, VITAL WNL NO C/O OF PAIN NOW, PT GIVEN INFORMATION REGARDING TRANSFER BY [employer] AND DR. SANTANA, FAMILY AT BEDSIDE. PT HAD HIS PERSONAL BELONGINGS. EMS ARRIVED AT 1252 FOR TRANSPORT.
--- NOTE | 2024-12-21 12:52 | NUR ---
[facility] BY TO LEAD RELAY TESTER PT.
--- NOTE | 2024-12-21 13:01 | NUR ---
[facility] TRANSERRED PT OUT AT 1300, WITH PERSONAL BELONGINGS, DISCHARGE PACKET GIVEN TO [facility]. WILL REPORT TO APRIL LANG AT [facility].
--- NOTE | 2024-12-21 13:21 | HMCIMG ---
EXAM: CT Head Without IV contrast. CLINICAL HISTORY: frontal headache TECHNIQUE: Axial computed tomography images of the head/brain without intravenous contrast. COMPARISON: None provided. FINDINGS: BRAIN: Large subdural mixed density haematoma is seen with approximate thickness of 27 mm along the right cerebral convexity extending for approximately 13 cm in charlie-posterior dimensions and 7 cm in craniocaudal dimensions with approximate volume 120 cc . There is associated extensive right cerebral oedema seen with associated significant mass effect with effacement of right lateral ventricle and shift of midline towards left by 10 mm. Imminent transtentorial herniation noted on right side.ORBITS: The orbits are unremarkable. SINUSES AND MASTOIDS: The paranasal sinuses and mastoid air cells are clear. BONES: No fracture. SOFT TISSUES: Unremarkable. IMPRESSION: Large subdural mixed density haematoma with approximate thickness of 27 mm along the right cerebral convexity extending for approximately 13 cm in charlie-posterior dimensions and 7 cm in craniocaudal dimensions, with approximate volume 120 cc. There is associated extensive right cerebral oedema seen with associated significant mass effect with effacement of right lateral ventricle and shift of midline towards left by 10 mm. Imminent transtentorial herniation on right side. Urgent findings were provided via account support specialist about time of dictation. /[place]
--- NOTE | 2024-12-21 15:49 | HMCIMG ---
EXAM: CR Chest, 1 View. CLINICAL HISTORY: cp COMPARISON: X-ray chest 09/29/2024 FINDINGS: LUNGS: There is no mass, infiltrate, or acute pulmonary abnormality. PLEURAL SPACES: No evidence of pleural effusion or pneumothorax. MEDIASTINUM: The cardiomediastinal silhouette is within normal limits. BONES: No aggressive appearing osseous lesion seen. IMPRESSION: No acute cardiopulmonary pathology is evident. /[place]
== END 2024-12-21 13:00 | disposition short-term general hospital (02) ==
LOC: EDH 09:24
DX: I62.1 Nontraumatic extradural hemorrhage (principal); I62.00 Nontraumatic subdural hemorrhage, unspecified; I48.91 Unspecified atrial fibrillation; E78.00 Pure hypercholesterolemia, unspecified; I10 Essential (primary) hypertension; Z79.82 Long term (current) use of aspirin; Z79.899 Other long term (current) drug therapy; Z90.79 Acquired absence of other genital organ(s); Z20.822 Contact with and (suspected) exposure to COVID-19
CPT/HCPCS: 36415; 70450; 71045; 80048; 81003; 82550; 83735; 84484; 85025; 87635; 87804; 87880; 93005; 99285; 99291

== ENCOUNTER → 2025-01-31 | Outpatient (CLI) | payer OTHER ==
[2025-01-31 08:43] LABS: CREATININE 1.0 mg/dL (0.5-1.3); GLOMERULAR FILTR. RATE CALC 78.0 mL/min (>90); UREA NITROGEN, BLOOD 19.0 mg/dL (7-18)
== END | disposition home or self-care (01) ==
LOC: LAB 07:56
PROVIDERS: ATTEND Neuromusculoskeletal Medicine & OMM
DX: S06.5XAA Traumatic subdural hemorrhage with loss of consciousness status unknown, initial encounter (principal); X58.XXXA Exposure to other specified factors, initial encounter; Y93.89 Activity, other specified; Y92.89 Other specified places as the place of occurrence of the external cause; Y99.8 Other external cause status
CPT/HCPCS: 36415; 82565; 84520

== ENCOUNTER → 2025-02-05 | Outpatient (CLI) | payer OTHER ==
[~2025-02-05] MED LIST changes: -AMLO-258 PO; -ASPI-1197 PO; +GADOTERATE MEGLUMINE 10 MMOL/20 ML VIAL IV ONE; -LOSA100T59 PO; -PRAV40TA62 PO
--- NOTE | 2025-02-05 09:56 | HMCIMG ---
EXAMINATION: MR Brain with and without intravenous contrast CLINICAL HISTORY: Traumatic subdural hemorrhage with loss of consciousness and chest status. TECHNIQUE: Multiplanar, multisequence MR images of the brain were acquired before and after intravenous gadolinium-based contrast. CONTRAST: 20 mL of Clariscan was administered intravenously. COMPARISON: CT head without contrast dated December 21, 2024. FINDINGS: BRAIN PARENCHYMA: A subacute subdural hematoma is present in the right mbklhec-wiyohp-izbmzezk region with maximum thickness measuring 0.6 cm without significant mass effect on the underlying right cerebral hemisphere. On post-contrast images, enhancement of the adjacent dura is present. T2/FLAIR hyperintensities in bilateral periventricular white matter suggest chronic small vessel ischemic changes. Mild diffuse cerebral volume loss is present in the form of prominent cortical sulci and the ventricular system. VENTRICLES AND EXTRA-AXIAL SPACES: The ventricles are prominent without hydrocephalus. The extra-axial subdural hematoma is as described. No additional extra-axial collection. MIDLINE STRUCTURES AND POSTERIOR FOSSA: Unremarkable. VASCULAR FLOW VOIDS: Preserved major arterial flow voids. SINUSES AND MASTOIDS: Mucosal thickening in bilateral maxillary sinuses. The mastoid air cells are clear. ORBITS: Unremarkable. BONES AND SOFT TISSUES: Postoperative katy holes in the right fronto-parietal calvarium. The visualized soft tissues are unremarkable. IMPRESSION: Residual subacute right lrazsuh-uoghzr-xoklqyrt subdural hematoma measuring 0.6 cm in maximum thickness without significant mass effect and with adjacent dural enhancement. Postoperative katy holes in the right fronto-parietal calvarium. Mild diffuse cerebral volume loss with chronic small vessel ischemic changes. Compared to the prior CT head without contrast, dated December 21, there is an interval postoperative reduction of the subdural hematoma. /[place]
== END | disposition home or self-care (01) ==
LOC: RAH 08:06
PROVIDERS: ATTEND Neuromusculoskeletal Medicine & OMM
DX: S06.5XAA Traumatic subdural hemorrhage with loss of consciousness status unknown, initial encounter (principal); X58.XXXA Exposure to other specified factors, initial encounter; Y93.89 Activity, other specified; Y92.89 Other specified places as the place of occurrence of the external cause; Y99.8 Other external cause status
CPT/HCPCS: 70553; A9575